=== PATIENT | male | born 1995 ===

== ENCOUNTER 2021-07-23 06:03 | Day surgery (SDC) | payer OTHER | END 2021-07-23 21:15 | disposition home or self-care (01) | LOC: CIR.AMB 06:03 | PROVIDERS: ATTEND Orthopaedic Surgery Hand Surgery | DX: S62.394A Other fracture of fourth metacarpal bone, right hand, initial encounter for closed fracture (principal); S62.396A Other fracture of fifth metacarpal bone, right hand, initial encounter for closed fracture; S52.571A Other intraarticular fracture of lower end of right radius, initial encounter for closed fracture; Z20.822 Contact with and (suspected) exposure to COVID-19 ==